=== PATIENT | female | born 1945 | race African-American/Black ===

== ENCOUNTER 2017-03-21 12:57 | Inpatient (IN) | payer MEDICARE, BC ==
[~2017-03-21] VITALS: Ht 175.3 cm; Wt 70.3 kg
[2017-03-21 12:30] VITALS: BP 119/84
[~2017-03-21 12:57] MED LIST: FAMO20TA8 PO; GABA-531 PO; LACO100T2 PO; LEVE500T19 PO; LISI2.5T47 PO; METO25TA6 PO; PRAV80TA21 PO; RIVA20TA PO; atenolol
[2017-03-21] MEDS ORDERED: IPRATROPIUM/ALBUTEROL 0.5-3(2.5)MG/3ML NEB HHN PRN (13:15)
[2017-03-21] MEDS ORDERED: ONDANSETRON HCL 4MG/2ML VIAL IV PRN ×2 (13:15→16:30)
[2017-03-21] MEDS ORDERED: ACETAMINOPHEN 325MG TABLET PO PRN ×2 (13:15→16:15)
[2017-03-21] MEDS ORDERED: DIPHENHYDRAMINE 50MG/ML VIAL IV PRN ×2 (13:15→16:15)
[2017-03-21] MEDS ORDERED: NITROGLYCERIN 0.4MG TABLET SL SL PRN (13:15)
[2017-03-21] MEDS ORDERED: CLONIDINE 0.1MG TABLET PO PRN (13:15)
[2017-03-21] MEDS ORDERED: NA PHOS,M-B/NA PHOS,DI-BA ENEMA 118ML PR PRN (13:15)
[2017-03-21] MEDS ORDERED: MAGNESIUM/ALUMINUM HYDROXIDE/SIMETHICONE 30ML UDC PO PRN (13:15)
[2017-03-21 15:04] VITALS: BP 119/84
[2017-03-21] MEDS: GABAPENTIN 100MG CAPSULE PO SCH ×2 (17:13→23:10)
[2017-03-21] MEDS: DOCUSATE SODIUM 100MG CAPSULE PO SCH (17:13)
[2017-03-21] MEDS: VIMPAT 200MG TABLET PO SCH (17:40)
[2017-03-21 20:00] VITALS: BP 138/104
[2017-03-21] MEDS ORDERED: LEVETIRACETAM 500MG PREMIX 100 ML IV SCH (21:00)
[2017-03-21] MEDS: METOPROLOL TARTRATE 25MG TABLET PO SCH (23:10)
[2017-03-21] MEDS: ATORVASTATIN CALCIUM 10MG TABLET PO SCH (23:10)
[2017-03-21] MEDS: ENOXAPARIN 40MG/0.4ML SYR SUBCUT SCH (23:11)
[2017-03-21] MEDS: POLYETHYLENE GLYCOL 3350 (17GM) 1 DOSE PACK PO SCH (23:11)
[2017-03-21] MEDS: LEVETIRACETAM 500MG in SODIUM CHLORIDE 0.9% 100ML IV SCH (23:11)
[2017-03-22] MEDS: FAMOTIDINE 20MG/2ML VIAL IV SCH ×2 (00:14→08:56)
[2017-03-22] MEDS: HYDROCODONE/ACETAMINOPHEN 10/325MG TABLET PO PRN (00:15)
[2017-03-22] MEDS: GABAPENTIN 100MG CAPSULE PO SCH ×3 (06:14→22:11)
[2017-03-22 06:18] LABS: HEMATOCRIT. 25.1 % (36.0-48.0); HEMOGLOBIN. 8.2 g/dL (12.0-16.0); MEAN CORPUSCULAR HEMOGLOBIN 25.7 pg (28.0-32.0); MEAN CORPUSCULAR VOLUME 78.8 fL (81.0-99.0); PLATELET 239 x1000/uL (130-400); RED BLOOD CELL COUNT 3.18 mill/uL (4.2-5.4); RED CELL DISTRIBUTION WIDTH 17.8 % (11.6-14.6)
[2017-03-22 06:48] LABS: CARBON DIOXIDE 25 mEq/L (21-32); CHLORIDE 105 mEq/L (98-107); PREALBUMIN 3.4 mg/dL (20.0-40.0)
[2017-03-22 08:00] VITALS: BP 101/71
[2017-03-22] MEDS: LEVETIRACETAM 500MG in SODIUM CHLORIDE 0.9% 100ML IV SCH ×2 (08:41→22:11)
[2017-03-22] MEDS: VIMPAT 200MG TABLET PO SCH ×2 (08:41→16:41)
[2017-03-22] MEDS: DOCUSATE SODIUM 100MG CAPSULE PO SCH ×2 (08:42→16:41)
[2017-03-22] MEDS: METOPROLOL TARTRATE 25MG TABLET PO SCH ×2 (08:43→21:00)
[2017-03-22 11:51] LABS: PLATELET ESTIMATE NORMAL
[2017-03-22] MEDS: ACETAMINOPHEN 325MG TABLET PO PRN ×2 (14:39→21:27)
[2017-03-22 20:00] VITALS: BP 100/71
[2017-03-22] MEDS ORDERED: FAMOTIDINE 20MG TABLET PO SCH (21:00)
[2017-03-22] MEDS: POLYETHYLENE GLYCOL 3350 (17GM) 1 DOSE PACK PO SCH (21:00)
[2017-03-22] MEDS: ATORVASTATIN CALCIUM 10MG TABLET PO SCH (21:26)
[2017-03-22] MEDS: ENOXAPARIN 40MG/0.4ML SYR SUBCUT SCH (21:27)
[2017-03-23] MEDS: GABAPENTIN 100MG CAPSULE PO SCH ×3 (05:48→21:02)
[2017-03-23 07:09] LABS: HEMATOCRIT. 25.4 % (36.0-48.0); HEMOGLOBIN. 8.4 g/dL (12.0-16.0); MEAN CORPUSCULAR HEMOGLOBIN 25.6 pg (28.0-32.0); MEAN CORPUSCULAR VOLUME 77.5 fL (81.0-99.0); MEAN PLATELET VOLUME 7.9 fl (7.4-10.4); PLATELET 285 x1000/uL (130-400); RED BLOOD CELL COUNT 3.27 mill/uL (4.2-5.4); RED CELL DISTRIBUTION WIDTH 17.7 % (11.6-14.6)
[2017-03-23 07:59] LABS: PLATELET ESTIMATE NORMAL
[2017-03-23 08:00] VITALS: BP 122/89
[2017-03-23] MEDS: LEVETIRACETAM 500MG TABLET PO SCH ×2 (08:46→21:01)
[2017-03-23] MEDS: DOCUSATE SODIUM 100MG CAPSULE PO SCH ×2 (08:46→17:52)
[2017-03-23] MEDS: METOPROLOL TARTRATE 25MG TABLET PO SCH ×2 (08:47→21:00)
[2017-03-23] MEDS: VIMPAT 200MG TABLET PO SCH ×2 (08:48→17:53)
[2017-03-23] MEDS: HYDROCODONE/ACETAMINOPHEN 10/325MG TABLET PO PRN ×2 (09:09→17:52)
[2017-03-23 17:19] LABS: CLARITY URINE CLEAR (CLEAR); COLOR URINE YELLOW (YELLOW); GLUCOSE URINE NEGATIVE (NEGATIVE); KETONES URINE NEGATIVE (NEGATIVE); LEUKOCYTE ESTERASE URINE 2+ (NEGATIVE); NITRITE URINE POSITIVE (NEGATIVE); OCCULT BLOOD URINE TRACE (NEGATIVE); PROTEIN URINE NEGATIVE (NEGATIVE); SPECIFIC GRAVITY URINE 1.018 (1.005-1.030); UROBILINOGEN URINE 0.2 E.U./dL (0.2-1.0)
[2017-03-23] MEDS: FERROUS SULFATE 300MG/5ML UDC PO SCH (17:53)
[2017-03-23 20:00] VITALS: BP 108/80
[2017-03-23] MEDS: POLYETHYLENE GLYCOL 3350 (17GM) 1 DOSE PACK PO SCH (21:00)
[2017-03-23] MEDS: ATORVASTATIN CALCIUM 10MG TABLET PO SCH (21:01)
[2017-03-23] MEDS: ENOXAPARIN 40MG/0.4ML SYR SUBCUT SCH (21:02)
[2017-03-24 05:58] LABS: HEMATOCRIT. 24.5 % (36.0-48.0); HEMOGLOBIN. 8.4 g/dL (12.0-16.0); MEAN CORPUSCULAR HEMOGLOBIN 26.5 pg (28.0-32.0); MEAN CORPUSCULAR VOLUME 76.9 fL (81.0-99.0); MEAN PLATELET VOLUME 7.8 fl (7.4-10.4); PLATELET 322 x1000/uL (130-400); RED BLOOD CELL COUNT 3.18 mill/uL (4.2-5.4); RED CELL DISTRIBUTION WIDTH 17.9 % (11.6-14.6)
[2017-03-24] MEDS: GABAPENTIN 100MG CAPSULE PO SCH ×3 (06:05→21:25)
[2017-03-24 07:04] LABS: CARBON DIOXIDE 24 mEq/L (21-32); CHLORIDE 103 mEq/L (98-107); HDL CHOLESTEROL 31 mg/dL (40-59); LDL CHOLESTEROL 94 mg/dL (5-100); PHOSPHORUS 3.7 mg/dL (2.5-4.9); TOTAL IRON BINDING CAPACITY 165 ug/dL (250-450)
[2017-03-24 08:00] VITALS: BP 119/83
[2017-03-24] MEDS: METOPROLOL TARTRATE 25MG TABLET PO SCH ×2 (08:16→21:25)
[2017-03-24] MEDS: DOCUSATE SODIUM 100MG CAPSULE PO SCH ×3 (08:16→16:36)
[2017-03-24] MEDS: LEVETIRACETAM 500MG TABLET PO SCH ×2 (08:16→21:24)
[2017-03-24] MEDS: FERROUS SULFATE 300MG/5ML UDC PO SCH ×3 (08:17→16:36)
[2017-03-24] MEDS: HYDROCODONE/ACETAMINOPHEN 10/325MG TABLET PO PRN ×2 (08:17→16:37)
[2017-03-24] MEDS ORDERED: LEVOFLOXACIN 500MG TABLET PO NR (08:52)
[2017-03-24] MEDS: VIMPAT 200MG TABLET PO SCH ×2 (09:34→17:33)
[2017-03-24 11:01] LABS: PLATELET ESTIMATE NORMAL
[2017-03-24] MEDS: LEVOFLOXACIN 250MG TABLET PO SCH (11:44)
[2017-03-24 14:06] LABS: FOLIC ACID (FOLATE) SERUM 10.6 ng/mL (>5.38)
[2017-03-24] MEDS: IRON SUCROSE COMPLEX 100 MG/5 ML ML IV SCH (16:36)
[2017-03-24 20:00] VITALS: BP 135/86
[2017-03-24] MEDS: ATORVASTATIN CALCIUM 10MG TABLET PO SCH (21:24)
[2017-03-24] MEDS: ENOXAPARIN 40MG/0.4ML SYR SUBCUT SCH (21:25)
[2017-03-24] MEDS: POLYETHYLENE GLYCOL 3350 (17GM) 1 DOSE PACK PO SCH (21:26)
[2017-03-25] MEDS: HYDROCODONE/ACETAMINOPHEN 10/325MG TABLET PO PRN ×3 (02:58→15:36)
[2017-03-25] MEDS: GABAPENTIN 100MG CAPSULE PO SCH ×3 (05:19→21:13)
[2017-03-25 08:00] VITALS: BP 143/100
[2017-03-25] MEDS: FERROUS SULFATE 300MG/5ML UDC PO SCH ×3 (08:43→17:53)
[2017-03-25] MEDS: DOCUSATE SODIUM 100MG CAPSULE PO SCH ×2 (08:44→17:53)
[2017-03-25] MEDS: METOPROLOL TARTRATE 25MG TABLET PO SCH ×2 (08:44→21:00)
[2017-03-25] MEDS: LEVETIRACETAM 500MG TABLET PO SCH ×2 (08:44→21:13)
[2017-03-25] MEDS: VIMPAT 200MG TABLET PO SCH ×2 (09:51→17:53)
[2017-03-25] MEDS: LEVOFLOXACIN 250MG TABLET PO SCH (12:01)
[2017-03-25] MEDS: CYANOCOBALAMIN 1000MCG/ML VIAL IM SCH (14:07)
[2017-03-25] MEDS: IRON SUCROSE COMPLEX 100 MG/5 ML ML IV SCH (17:53)
[2017-03-25 19:00] VITALS: BP_SYST 135; BP_SYST 95; BP_DIAS 69; BP_DIAS 75
[2017-03-25 20:00] VITALS: BP 95/69
[2017-03-25] MEDS: POLYETHYLENE GLYCOL 3350 (17GM) 1 DOSE PACK PO SCH (21:13)
[2017-03-25] MEDS: ATORVASTATIN CALCIUM 10MG TABLET PO SCH (21:13)
[2017-03-25] MEDS: ENOXAPARIN 40MG/0.4ML SYR SUBCUT SCH (21:13)
[2017-03-26] MEDS: GABAPENTIN 100MG CAPSULE PO SCH ×3 (06:00→21:27)
[2017-03-26 08:00] VITALS: BP 121/82
[2017-03-26] MEDS: LEVETIRACETAM 500MG TABLET PO SCH ×2 (08:41→21:27)
[2017-03-26] MEDS: FERROUS SULFATE 300MG/5ML UDC PO SCH (08:41)
[2017-03-26] MEDS: CYANOCOBALAMIN 1000MCG/ML VIAL IM SCH (08:41)
[2017-03-26] MEDS: DOCUSATE SODIUM 100MG CAPSULE PO SCH ×2 (08:42→17:04)
[2017-03-26] MEDS: METOPROLOL TARTRATE 25MG TABLET PO SCH ×2 (08:42→21:28)
[2017-03-26 08:43] LABS: HEMATOCRIT. 24.7 % (36.0-48.0); HEMOGLOBIN. 8.1 g/dL (12.0-16.0); MEAN CORPUSCULAR HEMOGLOBIN 25.6 pg (28.0-32.0); MEAN CORPUSCULAR VOLUME 77.5 fL (81.0-99.0); MEAN PLATELET VOLUME 7.4 fl (7.4-10.4); PLATELET 374 x1000/uL (130-400); RED BLOOD CELL COUNT 3.18 mill/uL (4.2-5.4); RED CELL DISTRIBUTION WIDTH 17.9 % (11.6-14.6)
[2017-03-26] MEDS: VIMPAT 200MG TABLET PO SCH ×2 (09:03→17:04)
[2017-03-26] MEDS: HYDROCODONE/ACETAMINOPHEN 10/325MG TABLET PO PRN ×2 (09:40→15:41)
[2017-03-26] MEDS: LEVOFLOXACIN 250MG TABLET PO SCH (11:16)
[2017-03-26 13:14] LABS: PLATELET ESTIMATE NORMAL
[2017-03-26] MEDS: IRON SUCROSE COMPLEX 100 MG/5 ML ML IV SCH (17:04)
[2017-03-26 20:00] VITALS: BP 134/70
[2017-03-26] MEDS: ATORVASTATIN CALCIUM 10MG TABLET PO SCH (21:27)
[2017-03-26] MEDS: POLYETHYLENE GLYCOL 3350 (17GM) 1 DOSE PACK PO SCH (21:28)
[2017-03-26] MEDS: ENOXAPARIN 40MG/0.4ML SYR SUBCUT SCH (21:29)
[2017-03-27] MEDS: GABAPENTIN 100MG CAPSULE PO SCH ×3 (06:00→21:02)
[2017-03-27 06:38] LABS: A/G RATIO 0.5 (0.7-1.7); ALBUMIN 2.3 g/dL (2.9-4.4); ALPHA-1-GLOBULIN 0.2 g/dL (0.0-0.4); ALPHA-2-GLOBULIN 0.9 g/dL (0.4-1.0); GLOBULIN TOTAL 4.2 g/dL (2.2-3.9); M-SPIKE Not Observed g/dL (Not Observed); TOTAL PROTEIN SERUM 6.5 g/dL (6.0-8.5)
[2017-03-27] MEDS: HYDROCODONE/ACETAMINOPHEN 10/325MG TABLET PO PRN ×2 (07:05→12:55)
[2017-03-27 08:00] VITALS: BP 124/82
[2017-03-27] MEDS: METOPROLOL TARTRATE 25MG TABLET PO SCH ×2 (09:08→21:02)
[2017-03-27] MEDS: VIMPAT 200MG TABLET PO SCH ×2 (09:08→17:12)
[2017-03-27] MEDS: DOCUSATE SODIUM 100MG CAPSULE PO SCH ×2 (09:08→16:50)
[2017-03-27] MEDS: LEVETIRACETAM 500MG TABLET PO SCH ×2 (09:08→21:02)
[2017-03-27] MEDS: CYANOCOBALAMIN 1000MCG/ML VIAL IM SCH (09:08)
[2017-03-27] MEDS: LEVOFLOXACIN 250MG TABLET PO SCH (11:12)
[2017-03-27 15:07] LABS: ALBUMIN URINE Note: % (.); TOTAL PROTEIN RANDOM URINE 21.1 mg/dL (Not Estab.)
[2017-03-27] MEDS: IRON SUCROSE COMPLEX 100 MG/5 ML ML IV SCH (16:50)
[2017-03-27 20:00] VITALS: BP 122/75
[2017-03-27] MEDS: ATORVASTATIN CALCIUM 10MG TABLET PO SCH (21:02)
[2017-03-27] MEDS: POLYETHYLENE GLYCOL 3350 (17GM) 1 DOSE PACK PO SCH (21:02)
[2017-03-27] MEDS: ENOXAPARIN 40MG/0.4ML SYR SUBCUT SCH (21:03)
[2017-03-28] MEDS: GABAPENTIN 100MG CAPSULE PO SCH ×3 (06:00→21:04)
[2017-03-28 06:40] LABS: HEMATOCRIT. 24.4 % (36.0-48.0); HEMOGLOBIN. 8.2 g/dL (12.0-16.0); MEAN CORPUSCULAR HEMOGLOBIN 26.2 pg (28.0-32.0); MEAN CORPUSCULAR VOLUME 78.2 fL (81.0-99.0); MEAN PLATELET VOLUME 7.4 fl (7.4-10.4); PLATELET 385 x1000/uL (130-400); RED BLOOD CELL COUNT 3.12 mill/uL (4.2-5.4); RED CELL DISTRIBUTION WIDTH 17.8 % (11.6-14.6)
[2017-03-28 07:22] LABS: CARBON DIOXIDE 24 mEq/L (21-32); CHLORIDE 103 mEq/L (98-107)
[2017-03-28 08:00] VITALS: BP 123/78
[2017-03-28] MEDS: METOPROLOL TARTRATE 25MG TABLET PO SCH ×2 (09:02→21:04)
[2017-03-28] MEDS: CYANOCOBALAMIN 1000MCG/ML VIAL IM SCH (09:02)
[2017-03-28] MEDS: LEVETIRACETAM 500MG TABLET PO SCH ×2 (09:02→21:03)
[2017-03-28] MEDS: HYDROCODONE/ACETAMINOPHEN 10/325MG TABLET PO PRN (09:04)
[2017-03-28] MEDS: VIMPAT 200MG TABLET PO SCH ×2 (09:18→18:12)
[2017-03-28 09:36] LABS: PLATELET ESTIMATE NORMAL
[2017-03-28] MEDS: LEVOFLOXACIN 250MG TABLET PO SCH (10:04)
[2017-03-28] MEDS: IRON SUCROSE COMPLEX 100 MG/5 ML ML IV SCH (18:12)
[2017-03-28 20:34] VITALS: BP 122/83
[2017-03-28] MEDS: ATORVASTATIN CALCIUM 10MG TABLET PO SCH (21:03)
[2017-03-28] MEDS: ENOXAPARIN 40MG/0.4ML SYR SUBCUT SCH (21:04)
[2017-03-29 04:23] LABS: 25-HYDROXY VITAMIN D3 17 ng/mL (.)
[2017-03-29] MEDS: GABAPENTIN 100MG CAPSULE PO SCH ×3 (05:34→21:15)
[2017-03-29] MEDS: HYDROCODONE/ACETAMINOPHEN 10/325MG TABLET PO PRN (07:52)
[2017-03-29 08:00] VITALS: BP 117/77
[2017-03-29] MEDS: METOPROLOL TARTRATE 25MG TABLET PO SCH ×2 (09:03→21:00)
[2017-03-29] MEDS: VIMPAT 200MG TABLET PO SCH ×2 (09:03→17:09)
[2017-03-29] MEDS: LEVETIRACETAM 500MG TABLET PO SCH ×2 (09:04→21:15)
[2017-03-29] MEDS: LEVOFLOXACIN 250MG TABLET PO SCH (11:03)
[2017-03-29] MEDS: LACTULOSE 20G/30ML UDC PO SCH ×3 (14:15→21:00)
[2017-03-29 20:00] VITALS: BP 120/77
[2017-03-29] MEDS: ATORVASTATIN CALCIUM 10MG TABLET PO SCH (21:15)
[2017-03-29] MEDS: ENOXAPARIN 40MG/0.4ML SYR SUBCUT SCH (21:16)
[2017-03-30] MEDS: GABAPENTIN 100MG CAPSULE PO SCH ×3 (06:29→21:26)
[2017-03-30 08:00] VITALS: BP 104/67
[2017-03-30] MEDS: METOPROLOL TARTRATE 25MG TABLET PO SCH ×2 (08:49→21:26)
[2017-03-30] MEDS: LEVETIRACETAM 500MG TABLET PO SCH ×2 (08:51→21:26)
[2017-03-30] MEDS: VIMPAT 200MG TABLET PO SCH ×2 (08:51→17:25)
[2017-03-30] MEDS: LEVOFLOXACIN 250MG TABLET PO SCH (10:35)
[2017-03-30] MEDS: ASCORBIC ACID 500 MG TABLET PO SCH (10:35)
[2017-03-30] MEDS: ERGOCALCIFEROL 50000UNITS CAPSULE PO SCH (10:35)
[2017-03-30] MEDS: FERROUS SULFATE 325MG TABLET PO SCH ×2 (13:35→17:25)
[2017-03-30 20:00] VITALS: BP 131/95
[2017-03-30] MEDS: ATORVASTATIN CALCIUM 10MG TABLET PO SCH (21:26)
[2017-03-30] MEDS: ENOXAPARIN 40MG/0.4ML SYR SUBCUT SCH (21:26)
[2017-03-31] MEDS: GABAPENTIN 100MG CAPSULE PO SCH ×3 (06:06→21:03)
[2017-03-31 07:10] LABS: HEMATOCRIT. 25.7 % (36.0-48.0); HEMOGLOBIN. 8.6 g/dL (12.0-16.0); MEAN CORPUSCULAR HEMOGLOBIN 26.2 pg (28.0-32.0); MEAN CORPUSCULAR VOLUME 77.7 fL (81.0-99.0); MEAN PLATELET VOLUME 7.1 fl (7.4-10.4); PLATELET 363 x1000/uL (130-400); RED CELL DISTRIBUTION WIDTH 19.2 % (11.6-14.6)
[2017-03-31 07:43] LABS: PLATELET ESTIMATE NORMAL
[2017-03-31 08:00] VITALS: BP 124/82
[2017-03-31] MEDS: ASCORBIC ACID 500 MG TABLET PO SCH (09:40)
[2017-03-31] MEDS: VIMPAT 200MG TABLET PO SCH ×2 (09:40→17:02)
[2017-03-31] MEDS: FERROUS SULFATE 325MG TABLET PO SCH ×3 (09:40→17:02)
[2017-03-31] MEDS: LEVETIRACETAM 500MG TABLET PO SCH ×2 (09:40→21:04)
[2017-03-31] MEDS: METOPROLOL TARTRATE 25MG TABLET PO SCH ×2 (09:40→21:04)
[2017-03-31] MEDS ORDERED: MAGNESIUM/ALUMINUM HYDROXIDE/SIMETHICONE 30ML UDC PO PRN (11:00)
[2017-03-31] MEDS: LEVOFLOXACIN 250MG TABLET PO SCH (11:04)
[2017-03-31] MEDS: ACETAMINOPHEN 325MG TABLET PO PRN (17:48)
[2017-03-31 20:00] VITALS: BP 126/85
[2017-03-31] MEDS: ENOXAPARIN 40MG/0.4ML SYR SUBCUT SCH (21:03)
[2017-03-31] MEDS: ATORVASTATIN CALCIUM 10MG TABLET PO SCH (21:04)
[2017-04-01] MEDS: GABAPENTIN 100MG CAPSULE PO SCH ×3 (05:52→21:37)
[2017-04-01 08:00] VITALS: BP 130/85
[2017-04-01] MEDS: DOCUSATE SODIUM 100MG CAPSULE PO SCH ×2 (09:00→17:00)
[2017-04-01] MEDS: ACETAMINOPHEN 325MG TABLET PO PRN (09:14)
[2017-04-01] MEDS: FERROUS SULFATE 325MG TABLET PO SCH ×3 (09:14→17:45)
[2017-04-01] MEDS: METOPROLOL TARTRATE 25MG TABLET PO SCH ×2 (09:14→21:37)
[2017-04-01] MEDS: LEVETIRACETAM 500MG TABLET PO SCH ×2 (09:14→21:36)
[2017-04-01] MEDS: ASCORBIC ACID 500 MG TABLET PO SCH (09:14)
[2017-04-01] MEDS: VIMPAT 200MG TABLET PO SCH ×2 (09:15→17:45)
[2017-04-01] MEDS: HYDROCODONE/ACETAMINOPHEN 10/325MG TABLET PO PRN (17:46)
[2017-04-01 20:00] VITALS: BP 129/81
[2017-04-01] MEDS: ATORVASTATIN CALCIUM 10MG TABLET PO SCH (21:37)
[2017-04-01] MEDS: ENOXAPARIN 40MG/0.4ML SYR SUBCUT SCH (21:38)
[2017-04-02] MEDS: GABAPENTIN 100MG CAPSULE PO SCH ×3 (06:19→22:06)
[2017-04-02 08:00] VITALS: BP 117/87
[2017-04-02] MEDS: LEVETIRACETAM 500MG TABLET PO SCH ×2 (08:45→22:06)
[2017-04-02] MEDS: ASCORBIC ACID 500 MG TABLET PO SCH (08:46)
[2017-04-02] MEDS: FERROUS SULFATE 325MG TABLET PO SCH ×3 (08:46→17:24)
[2017-04-02] MEDS: METOPROLOL TARTRATE 25MG TABLET PO SCH ×2 (08:46→22:07)
[2017-04-02] MEDS: VIMPAT 200MG TABLET PO SCH ×2 (08:46→17:24)
[2017-04-02] MEDS: DOCUSATE SODIUM 100MG CAPSULE PO SCH ×2 (08:46→17:00)
[2017-04-02] MEDS: ACETAMINOPHEN 325MG TABLET PO PRN (17:27)
[2017-04-02 20:00] VITALS: BP 125/80
[2017-04-02] MEDS: ATORVASTATIN CALCIUM 10MG TABLET PO SCH (22:06)
[2017-04-02] MEDS: ENOXAPARIN 40MG/0.4ML SYR SUBCUT SCH (22:08)
[2017-04-03] MEDS: GABAPENTIN 100MG CAPSULE PO SCH ×3 (06:17→21:45)
[2017-04-03 06:59] LABS: HEMATOCRIT. 25.9 % (36.0-48.0); HEMOGLOBIN. 8.5 g/dL (12.0-16.0); MEAN CORPUSCULAR HEMOGLOBIN 26.1 pg (28.0-32.0); MEAN CORPUSCULAR VOLUME 79.4 fL (81.0-99.0); MEAN PLATELET VOLUME 7.2 fl (7.4-10.4); PLATELET 319 x1000/uL (130-400); RED BLOOD CELL COUNT 3.26 mill/uL (4.2-5.4); RED CELL DISTRIBUTION WIDTH 19.6 % (11.6-14.6)
[2017-04-03 07:44] LABS: CARBON DIOXIDE 26 mEq/L (21-32); CHLORIDE 105 mEq/L (98-107)
[2017-04-03 08:00] VITALS: BP 125/74
[2017-04-03] MEDS: DOCUSATE SODIUM 100MG CAPSULE PO SCH ×2 (09:00→16:33)
[2017-04-03] MEDS: LEVETIRACETAM 500MG TABLET PO SCH ×2 (09:07→21:45)
[2017-04-03] MEDS: METOPROLOL TARTRATE 25MG TABLET PO SCH ×2 (09:08→21:46)
[2017-04-03] MEDS: ASCORBIC ACID 500 MG TABLET PO SCH (09:08)
[2017-04-03] MEDS: FERROUS SULFATE 325MG TABLET PO SCH ×3 (09:08→16:24)
[2017-04-03] MEDS: VIMPAT 200MG TABLET PO SCH ×2 (09:09→16:24)
[2017-04-03] MEDS: ACETAMINOPHEN 325MG TABLET PO PRN (10:49)
[2017-04-03 11:33] LABS: PLATELET ESTIMATE NORMAL
[2017-04-03] MEDS: HYDROCODONE/ACETAMINOPHEN 10/325MG TABLET PO PRN (16:27)
[2017-04-03 20:37] VITALS: BP 112/79
[2017-04-03] MEDS: ATORVASTATIN CALCIUM 10MG TABLET PO SCH (21:45)
[2017-04-03] MEDS: ENOXAPARIN 40MG/0.4ML SYR SUBCUT SCH (21:47)
[2017-04-04] MEDS: GABAPENTIN 100MG CAPSULE PO SCH ×3 (06:19→21:10)
[2017-04-04 08:00] VITALS: BP 136/91
[2017-04-04] MEDS: ASCORBIC ACID 500 MG TABLET PO SCH (08:34)
[2017-04-04] MEDS: LEVETIRACETAM 500MG TABLET PO SCH ×2 (08:34→21:10)
[2017-04-04] MEDS: DOCUSATE SODIUM 100MG CAPSULE PO SCH ×3 (08:34→17:00)
[2017-04-04] MEDS: FERROUS SULFATE 325MG TABLET PO SCH ×3 (08:34→17:24)
[2017-04-04] MEDS: METOPROLOL TARTRATE 25MG TABLET PO SCH ×2 (08:37→21:10)
[2017-04-04] MEDS: VIMPAT 200MG TABLET PO SCH ×2 (08:51→17:24)
[2017-04-04 08:56] LABS: HEMATOCRIT. 29.3 % (36.0-48.0); HEMOGLOBIN. 9.7 g/dL (12.0-16.0); MEAN CORPUSCULAR HEMOGLOBIN 26.1 pg (28.0-32.0); MEAN CORPUSCULAR VOLUME 79.3 fL (81.0-99.0); MEAN PLATELET VOLUME 7.3 fl (7.4-10.4); PLATELET 303 x1000/uL (130-400); RED CELL DISTRIBUTION WIDTH 19.6 % (11.6-14.6)
[2017-04-04 10:12] LABS: PLATELET ESTIMATE NORMAL
[2017-04-04 20:00] VITALS: BP 131/84
[2017-04-04] MEDS: ATORVASTATIN CALCIUM 10MG TABLET PO SCH (21:10)
[2017-04-04] MEDS: ENOXAPARIN 40MG/0.4ML SYR SUBCUT SCH (21:11)
[2017-04-05] MEDS ORDERED: FILGRASTIM 300 MCG/ML VIAL SUBCUT NR (06:00)
[2017-04-05] MEDS: GABAPENTIN 100MG CAPSULE PO SCH ×3 (06:30→21:07)
[2017-04-05] MEDS: ACETAMINOPHEN 325MG TABLET PO PRN (06:30)
[2017-04-05 08:00] VITALS: BP 120/80
[2017-04-05] MEDS: METOPROLOL TARTRATE 25MG TABLET PO SCH ×2 (08:31→21:06)
[2017-04-05] MEDS: LEVETIRACETAM 500MG TABLET PO SCH ×2 (08:31→21:06)
[2017-04-05] MEDS: DOCUSATE SODIUM 100MG CAPSULE PO SCH ×2 (08:31→17:00)
[2017-04-05] MEDS: ASCORBIC ACID 500 MG TABLET PO SCH (08:32)
[2017-04-05] MEDS: FERROUS SULFATE 325MG TABLET PO SCH ×3 (08:32→17:08)
[2017-04-05] MEDS: VIMPAT 200MG TABLET PO SCH ×2 (09:36→17:08)
[2017-04-05 13:01] LABS: HEPATITIS B CORE AB IGM NEGATIVE
[2017-04-05 13:02] LABS: HEPATITIS A AB IGM NEGATIVE (NEGATIVE)
[2017-04-05 14:19] LABS: HEPATITIS B SURFACE ANTIGEN NEGATIVE
[2017-04-05 20:00] VITALS: BP 134/82
[2017-04-05] MEDS: ENOXAPARIN 40MG/0.4ML SYR SUBCUT SCH (21:06)
[2017-04-05] MEDS: ATORVASTATIN CALCIUM 10MG TABLET PO SCH (21:06)
[2017-04-06] MEDS: GABAPENTIN 100MG CAPSULE PO SCH ×2 (05:59→13:29)
[2017-04-06 08:00] VITALS: BP 117/76
[2017-04-06] MEDS: FERROUS SULFATE 325MG TABLET PO SCH ×2 (09:40→13:29)
[2017-04-06] MEDS: ERGOCALCIFEROL 50000UNITS CAPSULE PO SCH (09:40)
[2017-04-06] MEDS: ASCORBIC ACID 500 MG TABLET PO SCH (09:40)
[2017-04-06] MEDS: DOCUSATE SODIUM 100MG CAPSULE PO SCH (09:40)
[2017-04-06] MEDS: LEVETIRACETAM 500MG TABLET PO SCH (09:40)
[2017-04-06] MEDS: METOPROLOL TARTRATE 25MG TABLET PO SCH (09:40)
[2017-04-06] MEDS: VIMPAT 200MG TABLET PO SCH (09:51)
[2017-04-06] MEDS ORDERED: BISACODYL 5MG TABLET PO PRN (10:45)
[2017-04-06 13:07] VITALS: BP 117/76
== END 2017-04-06 14:02 | disposition home health service (06) | DRG 535 ==
PROVIDERS: ADMIT Physical Medicine & Rehabilitation Spinal Cord Injury Medicine; ATTEND Internal Medicine
DX: S72.011A Unspecified intracapsular fracture of right femur, initial encounter for closed fracture (principal); E43 Unspecified severe protein-calorie malnutrition; D62 Acute posthemorrhagic anemia; E87.1 Hypo-osmolality and hyponatremia; N39.0 Urinary tract infection, site not specified; D63.8 Anemia in other chronic diseases classified elsewhere; D72.819 Decreased white blood cell count, unspecified; E78.00 Pure hypercholesterolemia, unspecified; E78.5 Hyperlipidemia, unspecified; G40.909 Epilepsy, unspecified, not intractable, without status epilepticus; R26.9 Unspecified abnormalities of gait and mobility; I11.9 Hypertensive heart disease without heart failure; W01.0XXA Fall on same level from slipping, tripping and stumbling without subsequent striking against object, initial encounter; B96.5 Pseudomonas (aeruginosa) (mallei) (pseudomallei) as the cause of diseases classified elsewhere; E55.9 Vitamin D deficiency, unspecified; K64.9 Unspecified hemorrhoids; E87.6 Hypokalemia; I67.1 Cerebral aneurysm, nonruptured; Y93.01 Activity, walking, marching and hiking; N81.10 Cystocele, unspecified; E61.1 Iron deficiency; N95.2 Postmenopausal atrophic vaginitis; Y92.092 Bedroom in other non-institutional residence as the place of occurrence of the external cause; Y99.8 Other external cause status; Z82.49 Family history of ischemic heart disease and other diseases of the circulatory system; Z68.22 Body mass index [BMI] 22.0-22.9, adult; Z86.79 Personal history of other diseases of the circulatory system; Z90.710 Acquired absence of both cervix and uterus
CPT/HCPCS: 36415; 76700; 80048; 80053; 80061; 81001; 82270; 82306; 82607; 82728; 82746; 83036; 83540; 83550; 83735; 84100; 84134; 84155; 84156; 84165; 84166; 84443; 84630; 85025; 85044; 86705; 86709; 86803; 87077; 87086; 87186; 87340; 92523; 93970; 97110; 97112; 97116; 97163; 97167; 97530; 97535; C1893; J1442; J1650; J1953; J3420; J3490; J7050